=== PATIENT | male | born 1975 | race Two or more races ===

== ENCOUNTER 2018-08-04 11:53 | Day surgery (SDC) | payer BC ==
[~2018-08-04 11:53] MED LIST: Buffered Lidocaine 0.9% SYRIN* 5 ML/SYR SYRINGE INTRADERM ONE
[2018-08-04] MEDS ORDERED: ceFAZolin 2 GM PREMIX in ORs 2 GM/50 ML BAG IVPB ONE ×2 (11:55→12:29)
[2018-08-04] MEDS ORDERED: Midazolam* 1 MG/ML 2 ML VIAL (2 MG) ONE (12:15)
[2018-08-04] MEDS ORDERED: fentaNYL* 50 MCG/ML 2 ML VIAL (100 MCG VIAL) ONE (12:15)
[2018-08-04] MEDS ORDERED: Bupivacaine 0.25% SDV* 30 ML ONE (13:26)
[2018-08-04] MEDS ORDERED: Lidocain 1% EPI 1:100,000 * 30 ML MDV ONE (13:26)
[2018-08-04] MEDS ORDERED: Propofol* 10 MG/ML 20 ML BTL IV PUSH ONE (13:56)
[2018-08-04] MEDS ORDERED: Ondansetron INJ* 2 MG/ML VIAL IV PRN (13:58)
[2018-08-04] MEDS ORDERED: Acetaminophen TAB* 325 MG PO PRN (13:58)
[2018-08-04] MEDS ORDERED: Naloxone* 0.4 MG/ML 1 ML VIAL IV PRN (13:58)
[2018-08-04] MEDS ORDERED: oxyCODONE/Acetamin 5/325 MG* TAB PO PRN (13:58)
[2018-08-04] MEDS ORDERED: Ketorolac INJ* 30 MG/ML 1 ML VIAL IV PRN (13:58)
[2018-08-04] MEDS ORDERED: DiMENhydriNATE IV* 50 MG/ML VIAL IV PUSH PRN (13:58)
[2018-08-04] MEDS ORDERED: fentaNYL* 50 MCG/ML 2 ML VIAL (100 MCG VIAL) IV PRN (13:58)
[2018-08-04 15:02] VITALS: BP 123/89
== END 2018-08-04 15:01 | disposition home or self-care (01) ==
LOC: OR 11:53
PROVIDERS: ATTEND Plastic Surgery
DX: R22.42 Localized swelling, mass and lump, left lower limb (principal); D17.24 Benign lipomatous neoplasm of skin and subcutaneous tissue of left leg; J45.909 Unspecified asthma, uncomplicated
CPT/HCPCS: 88304; J0690; J2250; J2704; J3010